=== PATIENT | female | born 1980 | race Caucasian/White ===

== ENCOUNTER 2017-04-30 17:38 | Emergency (ER) | payer OTHER ==
[~2017-04-30] VITALS: Ht 165.1 cm; Wt 123.5 kg
[~2017-04-30 17:38] MED LIST: FERR325C PO; IBUP800T25 PO; PREN1TAB49
[2017-04-30 17:52] VITALS: Ht 165.1 cm; Wt 123.5 kg
[2017-04-30] MEDS ORDERED: HYDROCODONE/APAP (10/325) TAB PO ONE (20:30)
[2017-04-30 20:49] LABS: BASOPHILS % 0.3 % (0.0-2.0); EOSINOPHILS # 0.3 10^3/ul (0.0-0.5); EOSINOPHILS % 2.7 % (0.0-7.0); HEMATOCRIT 38.9 % (37.0-47.0); HEMOGLOBIN 12.9 g/dl (12.0-16.0); LYMPHOCYTES # 2.5 10^3/ul (0.8-2.9); LYMPHOCYTES % 27.2 % (15.0-51.0); MEAN CORPUSCULAR HEMOGLOBIN 25.9 pg (29.0-33.0); MEAN CORPUSCULAR HGB CONC 33.2 g/dl (32.0-37.0); MEAN CORPUSCULAR VOLUME 78.1 fl (82.0-101.0); MEAN PLATELET VOLUME 9.7 fl (7.4-10.4); MONOCYTE # 0.4 10^3/ul (0.3-0.9); MONOCYTES % 4.3 % (0.0-11.0); NEUTROPHILS % 65.1 % (39.0-77.0); PLATELET COUNT 326 10^3/UL (140-415); RED BLOOD COUNT 4.98 10^6/ul (4.20-5.40); RED CELL DISTRIBUTION WIDTH 21.7 % (11.5-14.5); WHITE BLOOD COUNT 9.2 10^3/ul (4.8-10.8)
[2017-04-30 21:04] LABS: ADD UMIC YES; UR ASCORBIC ACID NEGATIVE (NEGATIVE); UR BILIRUBIN (Dip) 1+ mg/dL (NEGATIVE); UR BLOOD (Dip) NEGATIVE (NEGATIVE); UR CLARITY SLIGHTLY CLOUDY (CLEAR); UR COLOR YELLOW (YELLOW); UR GLUCOSE (Dip) NEGATIVE (NEGATIVE); UR KETONES (Dip) TRACE mg/dL (NEGATIVE); UR LEUKOCYTE ESTERASE (Dip) NEGATIVE Leu/ul (NEGATIVE); UR MUCUS MODERATE /HPF (NONE SEEN); UR NITRITE (Dip) NEGATIVE (NEGATIVE); UR RBC 2 /HPF (0-5); UR SQUAMOUS EPITHELIAL CELL FEW /HPF (FEW); UR TOTAL PROTEIN (Dip) 1+ mg/dl (NEGATIVE); UR UROBILINOGEN (Dip) 1+ mg/dL (NEGATIVE)
[2017-04-30 21:14] LABS: ALBUMIN 4.5 g/dl (3.3-4.9); ALBUMIN/GLOBULIN RATIO 1.15; CALCIUM 9.3 mg/dl (8.4-10.2); CREATININE 0.7 mg/dl (0.44-1.00); POTASSIUM 3.9 mmol/L (3.5-5.1); TOTAL PROTEIN 8.4 g/dl (6.1-8.1)
--- NOTE | 2017-04-30 21:39 | RADRPT ---
PROCEDURE: Renal US. CLINICAL INDICATION: Flank pain left kidney mass TECHNIQUE: Multiple sonographic images of the kidneys and bladder were obtained. The images were reviewed on a PACS workstation. COMPARISON: No prior studies are available for comparison. FINDINGS: The right kidney measures 10.4 cm and the left 9.7 cm in length. There is a 1.7 x 2.1 x 1.6 cm oval homogeneous hyperechoic mass with a small amount of internal vascular flow in the lower left kidney which could represent an angiomyolipoma. No right renal mass is seen. No renal calculus or hydrone phrosis is seen bilaterally. Bladder is empty with volume equals 5 cm precluding evaluation. IMPRESSION: 1.7 x 2.1 x 1.6 cm oval homogeneous hyperechoic solid mass with a small amount of internal vascular flow in the lower left kidney which could represent an angiomyolipoma. Other renal mass is also pos sible and MRI of the abdomen / kidneys with and without contrast is recommended for further evaluati on. RPTAT: HJES .Parminder Tapia MD, MD Date Time Electronically viewed and signed by .Parminder Tapia MD, on 04/30/2017 21:38 .S/
[2017-04-30] MEDS ORDERED: HYDR-902 PO (21:52)
[2017-04-30] MEDS ORDERED: IBUP-1542 PO (21:52)
--- NOTE | 2017-04-30 21:57 | ERD ---
ER Documentation Chief Complaint Date/Time DATE: 04/30/17 TIME: 21:54 Chief Complaint Pt sent from MD for eval abdominal/flank pain with kidney mass HPI Patient is a 36-year-old female who presents with left flank pain that she has had for several weeks. She has a known kidney mass and has surgery to have the mass removed in May scheduled with her doctor. Her doctor told her she should come to the emergency room if she began to have increased pain to make sure that she has no internal bleeding. She has no fever. No nausea vomiting or diarrhea. No dysuria hematuria or increased urinary frequency. ROS All systems reviewed and are negative except as per history of present illness. Medications Home Meds Active Scripts Hydrocodone/Acetaminophen ([place] 10-325 Tablet) 1 Each Tablet, 1 TAB PO Q6H Y for PAIN, #20 TAB Prov:NEHEMIAS SMITH PA-C 04/30/17 Ibuprofen* (Motrin*) 600 Mg Tab, 600 MG PO Q6, #30 TAB Prov:NEHEMIAS SMITH PA-C 04/30/17 Ibuprofen* (Motrin*) 800 Mg Tab, 800 MG PO Q6, #30 TAB Prov:NEGRITO CORDOVA PA-C 01/14/16 Reported Medications Ferrous Sulfate (Iron) 325 Mg Capsr, 325 MG PO BID 05/13/11 Vits W-Ca,Fe,Fa(<1MG) () 1 Tab Tablet 05/13/11 Allergies Allergies: Coded Allergies: pork derived (porcine) (Verified Allergy, Unknown, RASH, 05/04/14) PMhx/Soc History of Surgery: No (ANEMIA ONLY NO OTHER MEDICAL HISTORY, GALLBLADDER REMOVED 11/2010 ) Anesthesia Reaction: No Hx Neurological Disorder: No Hx Respiratory Disorders: No Hx Cardiac Disorders: No Hx Psychiatric Problems: No Hx Miscellaneous Medical Probl: No Hx Alcohol Use: No Hx Substance Use: No Hx Tobacco Use: No Smoking Status: Never smoker FmHx Family History: No diabetes Physical Exam Vitals Vital Signs Date Time Temp Pulse Resp B/P Pulse Ox O2 Delivery O2 Flow Rate FiO2 04/30/17 17:52 98.6 103 20 136/109 96 Physical Exam INITIAL VITAL SIGNS: Reviewed by me GENERAL: Awake, alert and oriented x 4, well appearing, nontoxic, speaking in full sentences. No acute distress NECK: Supple. No masses. Full range of motion. No meningismus. No midline tenderness. RESPIRATORY: Clear to auscultation bilaterally. Symmetric chest wall rise. No wheezing or rales. No accessory muscle use. CV: Regular rate and rhythm. No murmurs, rubs, or gallops. ABDOMEN: Soft, non-distended. Nontender. Negative [place]. Negative McBurneys point tenderness. No CVA tenderness bilaterally. No guarding. No rebound. : Deffered. Result Diagram: 04/30/17202804/30/172028 Results 24 hrs Laboratory Tests Test 04/30/17 20:29 White Blood Count 9.210^3/ul Red Blood Count 4.9810^6/ul Hemoglobin 12.9g/dl Hematocrit 38.9% Mean Corpuscular Volume 78.1fl Mean Corpuscular Hemoglobin 25.9pg Mean Corpuscular Hemoglobin Concent 33.2g/dl Red Cell Distribution Width 21.7% Platelet Count 17893^3/UL Mean Platelet Volume 9.7fl Neutrophils % 65.1% Lymphocytes % 27.2% Monocytes % 4.3% Eosinophils % 2.7% Basophils % 0.3% Nucleated Red Blood Cells % 0.0/100WBC Neutrophils # (Manual) 6.010^3/ul Lymphocytes # 2.510^3/ul Monocytes # 0.410^3/ul Eosinophils # 0.310^3/ul Basophils # 0.010^3/ul Nucleated Red Blood Cells # 0.010^3/ul Urine Color YELLOW Urine Clarity SLIGHTLY CLOUDY Urine pH 5.0 Urine Specific [place] 1.030 Urine Ketones TRACEmg/dL Urine Nitrite NEGATIVEmg/dL Urine Bilirubin 1+mg/dL Urine Urobilinogen 1+mg/dL Urine Leukocyte Esterase NEGATIVELeu/ul Urine Microscopic RBC 2/HPF Urine Microscopic WBC 4/HPF Urine Squamous Epithelial Cells FEW/HPF Urine Calcium Oxalate Crystals MANY/HPF Urine Mucus MODERATE/HPF Urine Hemoglobin NEGATIVEmg/dL Urine Glucose NEGATIVEmg/dL Urine Total Protein 1+mg/dl Sodium Level 141mmol/L Potassium Level 3.9mmol/L Chloride Level 104mmol/L Carbon Dioxide Level 27mmol/L Anion Gap 14 Blood Urea Nitrogen 6mg/dl Creatinine 0.70mg/dl Glucose Level 135mg/dl Calcium Level 9.3mg/dl Total Bilirubin 0.0mg/dl Direct Bilirubin 0.00mg/dl Indirect Bilirubin 0.0mg/dl Aspartate Amino Transf (AST/SGOT) 23IU/L Alanine Aminotransferase (ALT/SGPT) 38IU/L Alkaline Phosphatase 98IU/L Total Protein 8.4g/dl Albumin 4.5g/dl Globulin 3.90g/dl Albumin/Globulin Ratio 1.15 Lipase 93U/L Current Medications Medications (Trade) Dose Ordered Sig/Susan Route PRN Reason Start Time Stop Time Status Last Admin Dose Admin Acetaminophen/ Hydrocodone Bitart ([place] (10/325)) 1 tab ONCE ONCE PO 04/30/17 20:30 04/30/17 20:31 DC 04/30/17 20:34 Procedures/MDM Patient has left flank pain secondary to a known kidney mass that she has she already has surgery scheduled to have removed in May. Blood work was unremarkable. Renal ultrasound shows the mass but no evidence of internal bleeding. I reviewed the findings with Dr. Ann and we agree she is suitable for outpatient management and she was discharged with copies of everything and prescription for pain medications. Patient counseled regarding my diagnostic impression and care plan. Prior to discharge all questions answered. Pt agrees with treatment plan and understands strict return precautions. Pt is instructed to follow up with primary care provider within 24-48 hours. Precautionary instructions provided including instructions to return to the ER if not improving or for any worsening or changing symptoms or concerns. Departure Diagnosis: Primary Impression: Renal mass Condition: Stable Patient Instructions: Flank Pain, Uncertain Cause Additional Instructions: Call your primary care doctor TOMORROW for an appointment during the next 1-2 days.See the doctor sooner or return here if your condition worsens before your appointment time. NEHEMIAS SMITH PA-C Apr 30, 2017 21:57
[2017-04-30 22:07] VITALS: BP 133/93; PULSE 93; RESP 16; TEMP 97.7
== END 2017-04-30 22:08 | disposition home or self-care (01) ==
LOC: FTE 17:38
DX: N28.89 Other specified disorders of kidney and ureter (principal)
CPT/HCPCS: 76775; 80053; 81001; 83690; 85025